=== PATIENT | male | born 1955 | race Caucasian/White ===

== ENCOUNTER 2017-03-14 02:27 | Observation (INO) | payer OTHER ==
[~2017-03-14] VITALS: Ht 177.8 cm; Wt 78.8 kg
[2017-03-14 03:12] LABS: EOSINOPHIL (%) 1.4 % (0-5); EOSINOPHIL COUNT 0.1 K/uL (0-0.3); HEMATOCRIT 41.7 % (38.0-50.0); IMMATURE GRANULOCYTE (%) 0.6 % (0.0-0.7); INSTRUMENT ABS NEUTROPHIL CT 4.7 K/uL; LYMPHOCYTE COUNT 1.5 K/uL (1.0-2.8); MCH 31.4 PG (29.0-34.0); MCHC 35.5 G/DL (30.0-36.0); MCV 88.3 FL (86-99); MEAN PLAT.VOLUME 10.4 uM^3 (9.0-12.4); MONOCYTE (%) 8.7 % (3-12); MONOCYTE COUNT 0.6 K/uL (0-0.8); NEUTROPHIL (%) 67.5 % (45-76); NEUTROPHIL COUNT 4.7 K/uL (1.8-6.4); PLATELET COUNT 171 K/uL (156-360); RBC DIS.WIDTH-CV 11.7 % (11.8-14.6); RBC DIS.WIDTH-SD 37.4 % (39-53); RED BLOOD COUNT 4.72 M/uL (4.00-5.50); WHITE BLOOD COUNT 6.9 K/uL (4.1-10.2)
[2017-03-14 03:24] LABS: CHLORIDE 103 mEq/L (99-109); POTASSIUM 4.2 mEq/L (3.7-5.4); SODIUM 135 mEq/L (136-147)
[2017-03-14 03:25] LABS: GLUCOSE 295 mg/dL (70-99)
[2017-03-14 03:27] LABS: ANION GAP 11 MEQ/L (2-14)
[2017-03-14 03:29] LABS: GFR ESTIMATE (CALCULATED) > 59 mL/min/
[2017-03-14 03:30] LABS: UREA NITROGEN (BUN) 16 mg/dL (9-23)
[2017-03-14 03:34] LABS: TROP-I INTERPRETATION NEGATIVE; TROPONIN-I < 0.01 ng/mL (0.0-0.30)
[2017-03-14] MEDS ORDERED: TRAMADOL HCL50 MG PO (09:31)
[2017-03-14] MEDS ORDERED: METAXALONE800 MG PO (09:32)
[2017-03-14] MEDS ORDERED: CIALIS20 MG PO (09:32)
[2017-03-14] MEDS ORDERED: AZELASTINE137 MCG/0. BOTH NARES (09:33)
[2017-03-14] MEDS ORDERED: VITAMIN D31000 UNI2 PO (09:33)
[2017-03-14] MEDS ORDERED: ASCORBIC ACID500 M3 PO (09:33)
[2017-03-14] MEDS ORDERED: CYANOCOBALAM1000 MCG PO (09:33)
[2017-03-14 12:47] VITALS: BP 131/91
[2017-03-14 16:49] VITALS: BP 187/90
[2017-03-14 19:40] VITALS: BP 154/82
[2017-03-15 04:00] VITALS: BP 146/77
[2017-03-15 06:16] LABS: ANION GAP 8 MEQ/L (2-14); CHLORIDE 105 MEQ/L (99-109); GFR ESTIMATE (CALCULATED) > 59 mL/min/; GLUCOSE 180 mg/dL (70-99); POTASSIUM 4.5 MEQ/L (3.7-5.4); SAMPLE HEMOLYSIS CHECK 0; SAMPLE ICTERIC CHECK 0; SAMPLE LIPEMIA CHECK 0; SODIUM 139 MEQ/L (136-147); UREA NITROGEN (BUN) 14 mg/dL (9-23)
[2017-03-15 09:35] VITALS: BP 139/86
[2017-03-15 12:15] VITALS: BP 155/77
[2017-03-15 16:00] VITALS: BP 170/93
[2017-03-15 19:47] VITALS: BP 150/82
[2017-03-16 00:36] VITALS: BP 148/78
[2017-03-16 03:51] VITALS: BP 140/78
[2017-03-16 07:41] VITALS: BP 145/73
[2017-03-16 11:43] VITALS: BP 131/78
[2017-03-16 19:57] VITALS: BP 120/80
[2017-03-16 23:38] VITALS: BP 150/78
[2017-03-17 03:58] VITALS: BP 155/95
[2017-03-17 09:01] VITALS: BP 155/88
[2017-03-17] MEDS ORDERED: MORPHINE SULFAT15 M1 PO (10:25)
[2017-03-17] MEDS ORDERED: OXYCODONE-APAP1 EACH PO (10:25)
[2017-03-17] MEDS ORDERED: ROBAXIN500 MG PO (10:25)
== END 2017-03-17 12:13 | disposition home or self-care (01) ==
LOC: EME 02:27 → EDOF 09:38 → 5WEST 09:38 → EDOF 09:38 → 5WEST 12:36
PROVIDERS: Emergency Medicine; Internal Medicine
DX: G89.11 Acute pain due to trauma (principal); S22.42XD Multiple fractures of ribs, left side, subsequent encounter for fracture with routine healing; Z98.1 Arthrodesis status
CPT/HCPCS: 71260; 80048; 84484; 85025; 93005; 94799; 99281; 99283; C1755; G0378; J1170; J1200; J1644; J1885; J2270; J2405; J3010; J3360; J7030; J7050